=== PATIENT | female | born 1985 | race African-American/Black ===

== ENCOUNTER 2022-06-13 08:04 | Emergency (ER) | payer MEDICAID, OTHER ==
[~2022-06-13] VITALS: Ht 162.6 cm; Wt 67.2 kg
[2022-06-13 08:43] VITALS: BP 117/64
[2022-06-13] MEDS ORDERED: IBUP600T28 PO (09:58)
== END 2022-06-13 09:59 | disposition home or self-care (01) ==
LOC: ER 08:04
DX: S63.601A Unspecified sprain of right thumb, initial encounter (principal); Z88.1 Allergy status to other antibiotic agents; X58.XXXA Exposure to other specified factors, initial encounter; Y93.89 Activity, other specified; Y92.89 Other specified places as the place of occurrence of the external cause; Y99.8 Other external cause status
CPT/HCPCS: 73130

== ENCOUNTER 2023-03-22 07:11 | Emergency (ER) | payer MEDICAID, OTHER ==
[~2023-03-22] VITALS: Ht 157.5 cm; Wt 76.0 kg
[~2023-03-22 07:11] MED LIST: IBUP1TAB5 PO
[2023-03-22 07:49] LABS: Urine Bacteria FEW /hpf (None Seen); Urine Blood Negative /uL (Negative); Urine Clarity HAZY (Clear); Urine Color Yellow (Yellow); Urine Hyaline Cast FEW /lpf (0 - 2); Urine Mucus FEW (None Seen); Urine Protein, UAD 1+ (Negative); Urine Specific Gravity 1.026 (1.001-1.035); Urine Urobilinogen Normal (Negative); Urine WBC 11 /hpf (0 - 5); Urine pH 8.5 (5.0-8.0)
[2023-03-22 08:02] LABS: Basophils # (auto) 0 10 ^3/uL (0-0.2); Basophils % (auto) 0.4 % (0.0-2.0); Eosinophils # (auto) 0 10 ^3/uL (0-0.8); Eosinophils % (auto) 0.2 % (0.0-7.0); Hematocrit 47.2 % (36.0-46.0); Hemoglobin 16.2 g/dL (12.2-16.2); Lymphocytes # (auto) 1.9 10 ^3/uL (0.4-5.4); Lymphocytes % (auto) 14.9 % (10.0-50.0); Mean Corpuscular Hemoglobin 29.9 pg (28.0-32.0); Mean Corpuscular Hgb Conc. 34.4 g/dL (32.0-36.0); Monocytes # (auto) 0.5 10 ^3/uL (0-1.3); Monocytes % (auto) 4.3 % (0.0-12.0); Neutrophils # (auto) 10.1 10 ^3/uL (1.6-8.6); Neutrophils % (auto) 80.2 % (37.0-80.0); Nucleated Red Blood Cells % 0.1 %; Red Blood Cells 5.43 10^6/uL (4.0-5.20); Red Cell Distribution Width 13.7 % (11.8-14.3); White Blood Cell 12.5 10^3/uL (4.4-10.8)
[2023-03-22 08:13] LABS: Alanine Aminotransferase 31 U/L (7-40); Albumin 4.9 g/dL (3.2-4.8); Alkaline Phosphatase 128 U/L (46-116); Anion Gap 11 (5-15); Aspartate Aminotransferase 26 U/L (13-40); BUN/Creatinine Ratio 14.5 (10.0-20.0); Bilirubin, Total 0.4 mg/dL (0.2-1.0); Blood Urea Nitrogen 9 mg/dL (9-23); Calcium 10.4 mg/dL (8.5-10.1); Carbon Dioxide 20 mmol/L (20-30); Chloride 105 mmol/L (98-107); Glucose 134 mg/dL (74-106); Potassium 3.5 mmol/L (3.5-5.1); Sodium 136 mmol/L (136-145); Total Protein 8.2 g/dL (5.7-8.2)
[2023-03-22] MEDS ORDERED: ONDANSETRON HCL 4 MG/2 ML VIAL IV ONE (08:15)
[2023-03-22] MEDS ORDERED: SODIUM CHLORIDE 0.9% 1,000 ML IV ONE (08:30)
[2023-03-22] MEDS ORDERED: DICYCLOMINE HCL (10MG/ML) 2 ML AMPULE IM ONE (10:15)
[2023-03-22] MEDS ORDERED: DICY10CA PO (12:42)
[2023-03-22] MEDS ORDERED: ZOFR4T PO (12:42)
[2023-03-22] MEDS ORDERED: NAPR-1334 PO ×2 (12:42)
[2023-03-22] MEDS ORDERED: NITR-87 PO (12:45)
[2023-03-22 13:05] VITALS: BP 138/87; TEMP 99.5
[2023-03-22 13:10] VITALS: PULSE 83; RESP 18; O2SAT 94
== END 2023-03-22 13:11 | disposition home or self-care (01) ==
LOC: ER 07:11
DX: N39.0 Urinary tract infection, site not specified (principal); R10.2 Pelvic and perineal pain; J45.909 Unspecified asthma, uncomplicated; Z90.710 Acquired absence of both cervix and uterus; Z88.1 Allergy status to other antibiotic agents; Z88.6 Allergy status to analgesic agent
CPT/HCPCS: 36415; 74176; 76705; 80053; 81001; 83690; 84702; 85025; 96361; 96372; 96374; 99285; J0500; J2405; J7030

== ENCOUNTER 2023-10-06 07:05 | Emergency (ER) | payer MEDICAID ==
[~2023-10-06] VITALS: Ht 160 cm; Wt 74.6 kg
[~2023-10-06 07:05] MED LIST changes: +CALA1SUS2 EX; +DICY10CA PO; +NAP500T PO; +NITR-87 PO; +PRED20TA2 PO; +ZOFR4T PO
[2023-10-06 07:55] VITALS: BP 123/85; PULSE 72; RESP 16; TEMP 97.7; O2SAT 97
[2023-10-06] MEDS ORDERED: METH-1182 PO (07:55)
[2023-10-06] MEDS ORDERED: IBUP-1456 PO (07:55)
== END 2023-10-06 08:06 | disposition home or self-care (01) ==
LOC: ER 07:05
DX: S93.401A Sprain of unspecified ligament of right ankle, initial encounter (principal); S20.01XA Contusion of right breast, initial encounter; S80.02XA Contusion of left knee, initial encounter; J45.909 Unspecified asthma, uncomplicated; Z88.1 Allergy status to other antibiotic agents; Z88.6 Allergy status to analgesic agent; Z90.710 Acquired absence of both cervix and uterus; V43.52XA Car driver injured in collision with other type car in traffic accident, initial encounter; Y93.89 Activity, other specified; Y92.488 Other paved roadways as the place of occurrence of the external cause; Y99.8 Other external cause status